=== PATIENT | female | born 2000 | race Asian ===

== ENCOUNTER 2021-12-12 10:45 | Emergency (ER) | payer SELFPAY ==
[~2021-12-12] VITALS: Ht 160 cm; Wt 53.4 kg
--- NOTE | 2021-12-12 10:54 | PHYS DOC ---
Adult General Chief Complaint Chief Complaint: FLU SYMPTOM HPI HPI Patient is a 21 year old female who presents with flu symptoms. Has been ill over the last couple of days. Complains primarily of chills at home and a cough. Denies urinary symptoms. No abdominal pain. No shortness of breath. Does not report history of chronic health conditions. Currently is 2 months gestation with no care. No related complaints today. (RIO DE LA ROSA DO) Review of Systems Review of Systems Constitutional: see HPI, + fever, chills Eyes: Denies change in visual acuity, redness, or eye pain HENT: + nasal congestion Respiratory: Denies cough or shortness of breath Cardiovascular: No c/o chest pain GI: Denies : Denies Musculoskeletal: Denies Integument: Denies Neurologic: Denies Endocrine: Denies All other systems were reviewed and found to be within normal limits, except as documented in this note. (RIO DE LA ROSA DO) Physical Exam Physical Exam Constitutional: Well developed, well nourished, no acute distress, non-toxic appearance. HENT: Normocephalic, atraumatic, bilateral external ears normal, oropharynx moist, no oral exudates, nose normal. Eyes: PERRLA, EOMI, conjunctiva normal, no discharge. Neck: Normal range of motion, no tenderness, Cardiovascular:Heart rate regular rhythm, no murmur Lungs & Thorax: Bilateral breath sounds clear to auscultation Abdomen: Bowel sounds normal, soft, no tenderness Skin: Warm, dry, no erythema Extremities: No tenderness, no cyanosis, no clubbing, ROM intact, no edema. Neurologic: Alert and oriented X 3 (RIO DE LA ROSA DO) EKG EKG [] (RIO DE LA ROSA DO) Radiology/Procedures Radiology/Procedures [] (RIO DE LA ROSA DO) Course & Med Decision Making Course & Med Decision Making Pertinent Labs and Imaging studies reviewed. (See chart for details) ED summary: Patient presents to the ER primarily with flu symptoms. No shortness of breath. Her lungs are clear with good air movement in all carroll. She reports that she is 2 months but has no related complaints. In the ER, COVID test is collected. She has no indication for additional work-up or imaging today. Stable for discharge home. There is a significant language barrier and no interpretive services available for the language that she speaks today. Medical screening exam however is completed and patient is stable for discharge home. (RIO DE LA ROSA DO) Dragon Disclaimer Dragon Disclaimer This electronic medical record was generated, in whole or in part, using a voice recognition dictation system. (RIO DE LA ROSA DO) Departure Departure Impression: Primary Impression: Viral syndrome Disposition: HOME / SELF CARE / HOMELESS Condition: GOOD Patient Instructions: Viral Syndrome RIO DE LA ROSA DO Dec 12, 2021 10:54 LINWOOD JACOBS APRN Dec 12, 2021 11:05
[2021-12-12 11:58] VITALS: BP 108/68
--- NOTE | 2021-12-14 14:50 | NUR ---
IP: Informed pt of negative covid test. pt verbalized understanding.
== END 2021-12-12 12:00 | disposition home or self-care (01) ==
LOC: ER 10:45
DX: B34.9 Viral infection, unspecified (principal); Z20.822 Contact with and (suspected) exposure to COVID-19
CPT/HCPCS: 99283; U0003; U0005